=== PATIENT | male | born 1975 | race Caucasian/White ===

== ENCOUNTER 2020-06-20 00:02 | Emergency (ER) | payer MEDICAID ==
[~2020-06-20] VITALS: Ht 167.6 cm; Wt 87.7 kg
[2020-06-20 01:47] LABS: BASOPHIL % 0.4 % (0-2); PLATELET COUNT 208 x10^3mcL (130-400); RED CELL DISTRIBUTION WIDTH 14.4 % (11.5-14.5)
[2020-06-20 01:59] LABS: CALCIUM 8.2 mg/dL (8.5-10.1); CHLORIDE SERUM 101 mmol/L (98-107); GFR1 > 60 mL/min; GLUCOSE SERUM 87 mg/dL (74-106); POTASSIUM SERUM 3.6 mmol/L (3.5-5.1); SODIUM SERUM 138 mmol/L (136-145)
[2020-06-20 02:04] LABS: ALBUMIN 3.8 g/dL (3.4-5.0); ALKALINE PHOSPHATASE 103 U/L (46-116); ALT/SGPT 22 U/L (16-63); AST/SGOT 15 U/L (15-37); BILIRUBIN TOTAL 0.24 mg/dL (0.20-1.00); TOTAL PROTEIN, SERUM 7.4 g/dL (6.4-8.2)
[2020-06-20 03:45] VITALS: BP 134/97
== END 2020-06-20 03:45 | disposition home or self-care (01) ==
LOC: ED 00:02
PROVIDERS: Emergency Medicine
DX: K21.9 Gastro-esophageal reflux disease without esophagitis (principal)
CPT/HCPCS: 83880